=== PATIENT | female | born 1945 | race Caucasian/White ===

== ENCOUNTER 2023-05-18 10:31 | Emergency (ER) | payer MEDICARE, MEDICAID ==
[~2023-05-18] VITALS: Ht 154.9 cm; Wt 90.0 kg
[~2023-05-18 10:31] MED LIST: AMLO-314 PO; CEVI30CA7 PO; CYCL-1 PO; DET2T PO; DULO-31 PO; EST1T PO; FENO145T38 PO; GABA-532 PO; GLIP5TAB13 PO; HYDR-4353 PO; HYDR25TA4 PO; LEVO125T PO; LOSA-415 PO; METO100T14 PO; POLY15DR33 EACHEYE; VITA200C68 PO
[2023-05-18 10:37] VITALS: BP 136/75; PULSE 63; RESP 18; TEMP 98; O2SAT 96
== END 2023-05-18 11:47 | disposition home or self-care (01) ==
LOC: ER 10:32
DX: S51.812A Laceration without foreign body of left forearm, initial encounter (principal); X58.XXXA Exposure to other specified factors, initial encounter; Y93.89 Activity, other specified; Y92.89 Other specified places as the place of occurrence of the external cause; Y99.8 Other external cause status
CPT/HCPCS: 73080; 99284; A6258; A6449

== ENCOUNTER 2023-11-28 15:45 | Emergency (ER) | payer MEDICARE, MEDICAID ==
[~2023-11-28] VITALS: Ht 167.6 cm; Wt 80.1 kg
[~2023-11-28 15:45] MED LIST changes: -GLIP5TAB13 PO; +GLIP5TAB23 PO
[2023-11-28 16:03] VITALS: TEMP 98
[2023-11-28 17:53] LABS: EOSINOPHILS # (AUTO) 0.1 X10'3 (0-0.9); MONOCYTES # (AUTO) 0.6 X10'3 (0-0.9); NEUTROPHILS # (AUTO) 3.9 X10'3 (1.8-7.7); PLATELET COUNT 315 X10'3 (140-440)
[2023-11-28 17:55] LABS: BASOPHILS # (AUTO) 0.1 X10'3 (0-0.2); BASOPHILS % (AUTO) 0.8 % (0-1); EOSINOPHILS % (AUTO) 1.3 % (0-6); HEMATOCRIT 38.4 % (35.0-45.0); HEMOGLOBIN 12.9 g/dl (12.0-16.0); MEAN CORPUSCULAR HEMOGLOBIN 30.9 PG (27.0-31.0); MEAN CORPUSCULAR HGB CONC 33.7 g/dL (33.0-36.5); MEAN CORPUSCULAR VOLUME 91.9 FL (78-98); MEAN PLATELET VOLUME 9.1 FL (7.4-10.4); MONOCYTES % (AUTO) 9.1 % (2-12); NEUTROPHILS % (AUTO) 58.8 % (42-75); RED BLOOD COUNT 4.17 X10'6 (4.20-5.60); RED CELL DISTRIBUTION WIDTH 14.2 % (11.5-14.5); WHITE BLOOD COUNT 6.6 X10'3 (4.5-11.0)
[2023-11-28 18:20] LABS: ALBUMIN 3.2 G/DL (3.4-5.0); ANION GAP 14 (8-16); BLOOD UREA NITROGEN 16 MG/DL (7-18); BUN/CREATININE RATIO 12.9 (10.0-20.0); CALCIUM 9.2 MG/DL (8.5-10.1); CHLORIDE 101 MMOL/L (99-107); CREATININE 1.24 MG/DL (0.40-0.90); GLUCOSE 114 MG/DL (70-104); PRO BRAIN NATRIURETIC PEPTIDE 556 PG/ML (0-450); SODIUM 143 MMOL/L (135-145); TOTAL CARBON DIOXIDE 28.3 MMOL/L (24-32); eCRCL 34 ML/MIN; eGFR 42 ML/MIN
[2023-11-28 18:22] LABS: POTASSIUM 2.5 MMOL/L (3.5-5.1)
[2023-11-28] MEDS: potassium Cl 20 mEq SR tablet PO STA (19:11)
[2023-11-28] MEDS ORDERED: POTA-207 PO (19:50)
[2023-11-28 20:32] VITALS: BP 163/73; PULSE 64; RESP 16; O2SAT 95
== END 2023-11-28 20:33 | disposition home or self-care (01) ==
LOC: ER 15:45
DX: I87.1 Compression of vein (principal); E87.6 Hypokalemia; I11.0 Hypertensive heart disease with heart failure; I50.9 Heart failure, unspecified; E03.9 Hypothyroidism, unspecified; Z88.8 Allergy status to other drugs, medicaments and biological substances; Z91.018 Allergy to other foods
CPT/HCPCS: 36415; 71045; 80048; 83880; 84484; 85025; 93005; 93971; 99285

== ENCOUNTER 2024-09-20 15:55 | Inpatient (IN) | payer MEDICARE, MEDICAID ==
[~2024-09-20] VITALS: Ht 152.4 cm; Wt 70.5 kg
[2024-09-20 16:38] LABS: BASOPHILS # (AUTO) 0.1 X10'3 (0-0.2); BASOPHILS % (AUTO) 0.6 % (0-1); EOSINOPHILS # (AUTO) 0.1 X10'3 (0-0.9); EOSINOPHILS % (AUTO) 0.7 % (0-6); HEMATOCRIT 39.1 % (35.0-45.0); LYMPHOCYTES # (AUTO) 1.8 X10'3 (1.1-4.8); LYMPHOCYTES % (AUTO) 15.8 % (21-51); MEAN CORPUSCULAR HEMOGLOBIN 30.2 PG (27.0-31.0); MEAN CORPUSCULAR HGB CONC 33.2 g/dL (33.0-36.5); MEAN CORPUSCULAR VOLUME 90.8 FL (78-98); MEAN PLATELET VOLUME 9.6 FL (7.4-10.4); MONOCYTES # (AUTO) 0.9 X10'3 (0-0.9); MONOCYTES % (AUTO) 8.3 % (2-12); NEUTROPHILS # (AUTO) 8.5 X10'3 (1.8-7.7); NEUTROPHILS % (AUTO) 74.6 % (42-75); PLATELET COUNT 511 X10'3 (140-440); RED CELL DISTRIBUTION WIDTH 14.3 % (11.5-14.5); WHITE BLOOD COUNT 11.4 X10'3 (4.5-11.0)
[2024-09-20 16:55] LABS: ALBUMIN 2.9 G/DL (3.4-5.0); ANION GAP 11 (8-16); BLOOD UREA NITROGEN 34 MG/DL (7-18); BUN/CREATININE RATIO 14.2 (10.0-20.0); CALCIUM 8.9 MG/DL (8.5-10.1); CHLORIDE 96 MMOL/L (99-107); GLUCOSE 132 MG/DL (70-104); PRO BRAIN NATRIURETIC PEPTIDE 7822 PG/ML (0-450); SODIUM 140 MMOL/L (135-145); TOTAL CARBON DIOXIDE 33.2 MMOL/L (24-32); eCRCL 13 ML/MIN; eGFR 19 ML/MIN
[2024-09-20 17:02] LABS: POTASSIUM 2.9 MMOL/L (3.5-5.1)
[2024-09-20 17:38] LABS: ALANINE AMINOTRANSFERASE 35 U/L (12-78); ALBUMIN/GLOBULIN RATIO 0.6 (1.1-1.5); ALKALINE PHOSPHATASE 307 IU/L (46-116); ASPARTATE AMINO TRANSFERASE 45 U/L (10-37); BILIRUBIN,DIRECT 0.2 MG/DL (0-0.3); BILIRUBIN,TOTAL 0.6 MG/DL (0.1-1.0); LIPASE 118 U/L (16-77); MAGNESIUM 1.5 MG/DL (1.5-2.4); TOTAL PROTEIN 7.7 G/DL (6.4-8.2)
[2024-09-20 18:02] LABS: ETHANOL < 10 MG/DL (<10)
[2024-09-20] MEDS ORDERED: mag hydrox/Alum hydrox/simeth 30ml oral suspension PO PRN (18:05)
[2024-09-20] MEDS ORDERED: magnesium sulf-water 2g/50mL 50 ML IV PRN (18:05)
[2024-09-20] MEDS ORDERED: magnesium sulf-water 4G/100mL 100 ML IV PRN (18:05)
[2024-09-20] MEDS ORDERED: HYDROmorphone/PF 0.2 MG/ML SYRINGE IV PRN (18:05)
[2024-09-20] MEDS: normal saline 1000ml 1,000 ML IV SCH ×2 (18:05→19:25)
[2024-09-20] MEDS ORDERED: ondansetron/PF 4mg/2ml inj IV PRN (18:05)
[2024-09-20] MEDS ORDERED: potassium Cl 40MEQ/1/2NS 520ml 520 ML IV PRN (18:05)
[2024-09-20] MEDS ORDERED: morphine 2 MG/ML inj. syringe IV PRN (18:05)
[2024-09-20] MEDS ORDERED: potassium Cl 20 mEq SR tablet PO PRN (18:05)
[2024-09-20] MEDS ORDERED: magnesium hydroxide 30ml (MOM) UD suspension PO PRN (18:05)
[2024-09-20] MEDS ORDERED: acetaminophen 325mg tablet PO PRN ×2 (18:05)
[2024-09-20] MEDS: PERFLUTREN PROTEIN-A MICROSPHR (Optison) 0.22 MG/ML 3ML VIAL IV ONE (18:45)
[2024-09-20] MEDS ORDERED: DEXTROSE 15 GM of carb/4 tabs (each vial/BOTTLE has 4 tablets) PO PRN ×2 (18:45)
[2024-09-20] MEDS: potassium CL 10mEq/100ml bag 100 ML IV ONE (18:45)
[2024-09-20] MEDS ORDERED: dextrose 50%-water 50ml dispensing syringe IV PRN ×2 (18:45)
[2024-09-20] MEDS ORDERED: glucagon, human recombinant 1mg kit SUBCUT PRN (18:45)
[2024-09-20] MEDS: magnesium oxide 400mg tablet PO ONE (18:45)
[2024-09-20] MEDS: potassium Cl 20 mEq SR tablet PO ONE (18:46)
[2024-09-20 19:29] LABS: HEMOGLOBIN A1C 5.2 % (4.5-6.2)
[2024-09-20] MEDS ORDERED: piperacillin/tazo 4.5gm/100ml 100 ML IV SCH (19:30)
[2024-09-20] MEDS ORDERED: HYDROmorphone inj. 0.5 MG/0.5 ML DISP.SYRIN IV PRN (19:30)
[2024-09-20 19:37] LABS: CREATININE 2.25 MG/DL (0.40-0.90); SODIUM 139 MMOL/L (135-145); eCRCL 14 ML/MIN; eGFR 21 ML/MIN
[2024-09-20] MEDS: normal saline 500ml IV soln 500 ML IV ONE (19:52)
[2024-09-20] MEDS: furosemide 20 MG/2 ML vial IV ONE (19:57)
[2024-09-20] MEDS: docusate sod 100mg capsule PO SCH (20:00)
[2024-09-20] MEDS: K and/or MAG REPLACEMENT MC SCH (20:00)
[2024-09-20 20:09] LABS: OSMOLALITY 307 MOSM/K (280-300)
[2024-09-20 20:58] LABS: THYROID STIMULATING HORMONE 0.21 ulU/ml (0.34-4.50)
[2024-09-20] MEDS: INSULIN LISPRO 100 UNIT/ML INSULN.PEN MULTI-DOSE SQ SCH (21:00)
[2024-09-20] MEDS: insulin glargine (Lantus) pen - multi-dose SQ SCH (21:23)
[2024-09-20] MEDS ORDERED: Melatonin 3mg tablet PO SCH (23:00)
[2024-09-20] MEDS: Melatonin 3mg tablet PO ONE (23:13)
[2024-09-20 23:56] LABS: BILIRUBIN,URINE NEGATIVE (Neg); CLARITY,URINE CLOUDY (Clear); COLOR,URINE YELLOW (Yellow); GLUCOSE, URINE NEGATIVE (Neg); KETONES,URINE NEGATIVE (Neg); LEUKOCYTE ESTERASE ,URINE LARGE (Neg); NITRITES, URINE NEGATIVE (Neg); OCCULT BLOOD,URINE MODERATE (Neg); PROTEIN,URINE NEGATIVE (Neg); UROBILINOGEN,URINE 0.2 E.U/dL (0.2-1.0)
[2024-09-21] VITALS (12 sets, daily range): BP systolic 107–164; BP diastolic 53–82; PULSE 68–154; RESP 16–18; TEMP 97.6–99.5; O2SAT 90–98
[2024-09-21 00:05] LABS: UA COLLECTION TYPE VOIDED
[2024-09-21 00:06] LABS: BACTERIA,URINE 4+ /HPF (Neg); MUCUS STRANDS FEW /LPF (Neg); SQUAMOUS EPITHELIAL CELL,UR MODERATE /LPF (FEW); WBC,URINE TNTC /HPF (0-4)
[2024-09-21 00:40] LABS: SODIUM,URINE RANDOM 108 MEQ/L; URINE AMPHETAMINE SCREEN NEGATIVE (Neg); URINE BARBITUATE SCREEN NEGATIVE (Neg); URINE BENZODIAZEPINES SCREEN NEGATIVE (Neg); URINE CANNABINOID SCREEN NEGATIVE (Neg); URINE COCAINE SCREEN NEGATIVE (Neg); URINE METHADONE SCREEN NEGATIVE (Neg); URINE OPIATE SCREEN NEGATIVE (Neg); URINE PHENCYCLIDINE SCREEN NEGATIVE (Neg)
[2024-09-21 01:10] LABS: OSMOLALITY UA 297 MOSM/K (50-1400)
[2024-09-21] MEDS: metoprolol tartrate 1mg/ml inj IV SCH (02:23)
[2024-09-21] MEDS ORDERED: POTA-208 PO (03:11)
[2024-09-21] MEDS ORDERED: LOP12.5T PO (03:11)
[2024-09-21] MEDS ORDERED: PILO7.5T4 PO (03:11)
[2024-09-21] MEDS ORDERED: FURO20TA4 PO (03:11)
[2024-09-21] MEDS ORDERED: polyvinyl alcohol eye drops 15ML BOTTLE EACHEYE PRN (07:20)
[2024-09-21] MEDS ORDERED: cyclobenzaprine 10mg tablet PO PRN (07:20)
[2024-09-21 07:41] LABS: BASOPHILS # (AUTO) 0.1 X10'3 (0-0.2); BASOPHILS % (AUTO) 0.5 % (0-1); EOSINOPHILS # (AUTO) 0.1 X10'3 (0-0.9); HEMATOCRIT 30.6 % (35.0-45.0); HEMOGLOBIN 10.1 g/dl (12.0-16.0); LYMPHOCYTES # (AUTO) 1.8 X10'3 (1.1-4.8); LYMPHOCYTES % (AUTO) 16.5 % (21-51); MEAN CORPUSCULAR HGB CONC 33.1 g/dL (33.0-36.5); MEAN CORPUSCULAR VOLUME 90.9 FL (78-98); MEAN PLATELET VOLUME 9.6 FL (7.4-10.4); MONOCYTES # (AUTO) 0.9 X10'3 (0-0.9); MONOCYTES % (AUTO) 7.9 % (2-12); NEUTROPHILS % (AUTO) 74.1 % (42-75); PLATELET COUNT 346 X10'3 (140-440); RED BLOOD COUNT 3.37 X10'6 (4.20-5.60); RED CELL DISTRIBUTION WIDTH 13.9 % (11.5-14.5); WHITE BLOOD COUNT 10.7 X10'3 (4.5-11.0)
[2024-09-21 07:59] LABS: ALANINE AMINOTRANSFERASE 31 U/L (12-78); ALBUMIN 2.1 G/DL (3.4-5.0); ALBUMIN/GLOBULIN RATIO 0.6 (1.1-1.5); ALKALINE PHOSPHATASE 248 IU/L (46-116); ANION GAP 9 (8-16); ASPARTATE AMINO TRANSFERASE 35 U/L (10-37); BILIRUBIN,TOTAL 0.6 MG/DL (0.1-1.0); BLOOD UREA NITROGEN 34 MG/DL (7-18); BUN/CREATININE RATIO 16.1 (10.0-20.0); CALCIUM 7.8 MG/DL (8.5-10.1); CHLORIDE 101 MMOL/L (99-107); CHOL/HDL RATIO 2.6 (0.00-4.99); CHOLESTEROL 106 MG/DL (0-200); CREATININE 2.11 MG/DL (0.40-0.90); GLUCOSE 100 MG/DL (70-104); HDL CHOLESTEROL 41 MG/DL (35-60); LDL CHOLESTEROL 50 MG/DL (50-100); LIPASE 97 U/L (16-77); MAGNESIUM 1.5 MG/DL (1.5-2.4); SODIUM 140 MMOL/L (135-145); TOTAL CARBON DIOXIDE 29.6 MMOL/L (24-32); TOTAL PROTEIN 5.8 G/DL (6.4-8.2); TRIGLYCERIDES 95 MG/DL (20-135); eCRCL 15 ML/MIN; eGFR 23 ML/MIN
[2024-09-21] MEDS ORDERED: furosemide 40mg/4ml inj IV SCH (08:00)
[2024-09-21] MEDS: metroNIDAZOLE-Flagyl 500mg/NS 100 ML IV SCH (08:04)
[2024-09-21] MEDS: normal saline 1000ml 1,000 ML IV ONE (08:04)
[2024-09-21] MEDS: gabapentin 300mg capsule PO SCH (08:06)
[2024-09-21] MEDS: duloxetine 30mg CAPSULE.DR PO SCH (08:06)
[2024-09-21] MEDS: amLODIPine 5mg tablet PO SCH (08:06)
[2024-09-21] MEDS: levoTHYROXINE 125mcg tablet PO SCH (08:07)
[2024-09-21] MEDS: fenofibrate 145mg tablet PO SCH (08:07)
[2024-09-21] MEDS: losartan 25mg tablet PO SCH (08:07)
[2024-09-21] MEDS: metoprolol tartrate 12.5mg (1/2 tablet) PO SCH (08:07)
[2024-09-21 08:12] LABS: POTASSIUM 2.6 MMOL/L (3.5-5.1)
[2024-09-21] MEDS: potassium Cl 20 mEq SR tablet PO PRN (08:14)
[2024-09-21] MEDS: CefTRIAXone/D5W-Rocephin 1gm 50 ML IV SCH (09:16)
[2024-09-21] MEDS: heparin, porcine 5000 units/ml vial SQ SCH (09:16)
[2024-09-21] MEDS ORDERED: gabapentin 300mg capsule PO SCH (14:45)
[2024-09-21] MEDS: normal saline 1000ml 1,000 ML IV SCH (17:07)
[2024-09-22] VITALS (25 sets, daily range): BP systolic 100–153; BP diastolic 62–97; PULSE 75–134; RESP 16–31; TEMP 97–98.1; O2SAT 91–94
[2024-09-22] MEDS: metoprolol tartrate 1mg/ml inj IV ONE ×2 (05:50→06:02)
[2024-09-22 07:14] LABS: BASOPHILS # (AUTO) 0.1 X10'3 (0-0.2); BASOPHILS % (AUTO) 0.5 % (0-1); EOSINOPHILS % (AUTO) 0.2 % (0-6); HEMATOCRIT 36.1 % (35.0-45.0); HEMOGLOBIN 11.8 g/dl (12.0-16.0); LYMPHOCYTES # (AUTO) 1.1 X10'3 (1.1-4.8); LYMPHOCYTES % (AUTO) 6.6 % (21-51); MEAN CORPUSCULAR HGB CONC 32.7 g/dL (33.0-36.5); MEAN CORPUSCULAR VOLUME 91.7 FL (78-98); MONOCYTES # (AUTO) 1.1 X10'3 (0-0.9); MONOCYTES % (AUTO) 6.5 % (2-12); NEUTROPHILS # (AUTO) 14.8 X10'3 (1.8-7.7); NEUTROPHILS % (AUTO) 86.2 % (42-75); PLATELET COUNT 445 X10'3 (140-440); RED BLOOD COUNT 3.94 X10'6 (4.20-5.60); RED CELL DISTRIBUTION WIDTH 14.8 % (11.5-14.5); WHITE BLOOD COUNT 17.2 X10'3 (4.5-11.0)
[2024-09-22 07:39] LABS: ALANINE AMINOTRANSFERASE 31 U/L (12-78); ALBUMIN 2.2 G/DL (3.4-5.0); ALBUMIN/GLOBULIN RATIO 0.5 (1.1-1.5); ALKALINE PHOSPHATASE 314 IU/L (46-116); ANION GAP 9 (8-16); ASPARTATE AMINO TRANSFERASE 64 U/L (10-37); BILIRUBIN,TOTAL 0.8 MG/DL (0.1-1.0); BLOOD UREA NITROGEN 28 MG/DL (7-18); CALCIUM 8.4 MG/DL (8.5-10.1); CHLORIDE 104 MMOL/L (99-107); CREATININE 1.87 MG/DL (0.40-0.90); GLUCOSE 137 MG/DL (70-104); MAGNESIUM 1.4 MG/DL (1.5-2.4); POTASSIUM 4.4 MMOL/L (3.5-5.1); SODIUM 137 MMOL/L (135-145); TOTAL CARBON DIOXIDE 23.8 MMOL/L (24-32); TOTAL PROTEIN 6.4 G/DL (6.4-8.2); eCRCL 17 ML/MIN; eGFR 26 ML/MIN
[2024-09-22] MEDS: gabapentin 300mg capsule PO SCH (07:49)
[2024-09-22] MEDS: amiodarone 150mg/dext, iso-os 100 ML IV ONE (08:53)
[2024-09-22 08:55] LABS: D-DIMER 2.33 MG/L FEU (0-0.50)
[2024-09-22] MEDS: amiodarone/D5 360MG/200ML BAG 200 ML IV SCH (09:02)
[2024-09-22] MEDS ORDERED: iohexol 300 MG/1 ML 50ml polymer ONE (09:45)
[2024-09-22] MEDS ORDERED: ondansetron/PF 4mg/2ml inj IV PRN (10:50)
[2024-09-22] MEDS ORDERED: HYDROmorphone/PF 0.2 MG/ML SYRINGE IV PRN ×2 (10:50)
[2024-09-22] MEDS ORDERED: morphine 4 MG/ML inj SYRINge IV PRN (10:50)
[2024-09-22] MEDS ORDERED: morphine 2 MG/ML inj. syringe IV PRN (10:50)
[2024-09-22] MEDS ORDERED: ringers solution, lacted 1,000 ML IV SCH (10:50)
[2024-09-22] MEDS ORDERED: propofol inj 20 ML IV ONE (10:56)
[2024-09-22] MEDS ORDERED: fentaNYL/PF 50MCG/1 ML 2ML syringe ONE (10:57)
[2024-09-22] MEDS: iohexol 300 MG/1 ML 10ml vial IJ ONE (12:22)
[2024-09-22] MEDS: magnesium Cl slow-release 64mg tablet PO PRN (15:00)
[2024-09-22] MEDS: metoprolol tartrate 25mg tablet PO SCH (21:56)
[2024-09-23] VITALS (17 sets, daily range): BP systolic 98–165; BP diastolic 79–123; PULSE 105–128; RESP 16–27; TEMP 97.8–98.9; O2SAT 91–96
[2024-09-23 07:05] LABS: BASOPHILS # (AUTO) 0.1 X10'3 (0-0.2); EOSINOPHILS # (AUTO) 0.2 X10'3 (0-0.9); LYMPHOCYTES # (AUTO) 1.6 X10'3 (1.1-4.8); LYMPHOCYTES % (AUTO) 9.3 % (21-51); MEAN PLATELET VOLUME 10.3 FL (7.4-10.4); MONOCYTES # (AUTO) 1.4 X10'3 (0-0.9); RED CELL DISTRIBUTION WIDTH 14.9 % (11.5-14.5)
[2024-09-23 07:06] LABS: BASOPHILS % (AUTO) 0.3 % (0-1); EOSINOPHILS % (AUTO) 1.2 % (0-6); HEMATOCRIT 36.4 % (35.0-45.0); HEMOGLOBIN 11.8 g/dl (12.0-16.0); MEAN CORPUSCULAR HEMOGLOBIN 29.6 PG (27.0-31.0); MEAN CORPUSCULAR HGB CONC 32.3 g/dL (33.0-36.5); MEAN CORPUSCULAR VOLUME 91.6 FL (78-98); MONOCYTES % (AUTO) 7.7 % (2-12); NEUTROPHILS # (AUTO) 14.4 X10'3 (1.8-7.7); NEUTROPHILS % (AUTO) 81.5 % (42-75); PLATELET COUNT 508 X10'3 (140-440); RED BLOOD COUNT 3.98 X10'6 (4.20-5.60); WHITE BLOOD COUNT 17.7 X10'3 (4.5-11.0)
[2024-09-23] MEDS ORDERED: apixaban 5mg tablet PO SCH (08:00)
[2024-09-23] MEDS: apixaban 2.5mg tablet PO SCH (08:06)
[2024-09-23 09:08] LABS: ALANINE AMINOTRANSFERASE 29 U/L (12-78); ALBUMIN/GLOBULIN RATIO 0.5 (1.1-1.5); ALKALINE PHOSPHATASE 279 IU/L (46-116); ANION GAP 11 (8-16); ASPARTATE AMINO TRANSFERASE 51 U/L (10-37); BILIRUBIN,TOTAL 0.4 MG/DL (0.1-1.0); BLOOD UREA NITROGEN 23 MG/DL (7-18); BUN/CREATININE RATIO 14.7 (10.0-20.0); CALCIUM 8.2 MG/DL (8.5-10.1); CHLORIDE 105 MMOL/L (99-107); CREATININE 1.56 MG/DL (0.40-0.90); GLUCOSE 126 MG/DL (70-104); MAGNESIUM 1.6 MG/DL (1.5-2.4); SODIUM 142 MMOL/L (135-145); TOTAL CARBON DIOXIDE 26.4 MMOL/L (24-32); TOTAL PROTEIN 5.9 G/DL (6.4-8.2); eCRCL 21 ML/MIN; eGFR 32 ML/MIN
[2024-09-23] MEDS: enoxaparin 80mg/0.8ml syringe SUBCUT SCH (17:48)
[2024-09-24] VITALS (15 sets, daily range): BP systolic 90–161; BP diastolic 68–104; PULSE 92–139; RESP 16–22; TEMP 97.2–98; O2SAT 87–96
[2024-09-24] MEDS: cefepime 1GM in D5W 50mL 50 ML IV SCH (01:20)
[2024-09-24 07:29] LABS: BASOPHILS # (AUTO) 0.1 X10'3 (0-0.2); BASOPHILS % (AUTO) 0.7 % (0-1); EOSINOPHILS # (AUTO) 0.2 X10'3 (0-0.9); EOSINOPHILS % (AUTO) 1.7 % (0-6); HEMATOCRIT 35.5 % (35.0-45.0); HEMOGLOBIN 11.6 g/dl (12.0-16.0); LYMPHOCYTES # (AUTO) 1.5 X10'3 (1.1-4.8); LYMPHOCYTES % (AUTO) 13.9 % (21-51); MEAN CORPUSCULAR HEMOGLOBIN 29.7 PG (27.0-31.0); MEAN CORPUSCULAR HGB CONC 32.6 g/dL (33.0-36.5); MEAN CORPUSCULAR VOLUME 91.2 FL (78-98); MEAN PLATELET VOLUME 10.2 FL (7.4-10.4); MONOCYTES # (AUTO) 0.8 X10'3 (0-0.9); MONOCYTES % (AUTO) 7.5 % (2-12); NEUTROPHILS # (AUTO) 8.5 X10'3 (1.8-7.7); NEUTROPHILS % (AUTO) 76.2 % (42-75); PLATELET COUNT 448 X10'3 (140-440); RED CELL DISTRIBUTION WIDTH 15.1 % (11.5-14.5); WHITE BLOOD COUNT 11.1 X10'3 (4.5-11.0)
[2024-09-24 08:02] LABS: ALANINE AMINOTRANSFERASE 22 U/L (12-78); ALBUMIN/GLOBULIN RATIO 0.5 (1.1-1.5); ALKALINE PHOSPHATASE 274 IU/L (46-116); ANION GAP 11 (8-16); ASPARTATE AMINO TRANSFERASE 33 U/L (10-37); BILIRUBIN,TOTAL 0.3 MG/DL (0.1-1.0); BLOOD UREA NITROGEN 20 MG/DL (7-18); BUN/CREATININE RATIO 13.3 (10.0-20.0); CALCIUM 8.3 MG/DL (8.5-10.1); CHLORIDE 105 MMOL/L (99-107); GLUCOSE 109 MG/DL (70-104); MAGNESIUM 1.4 MG/DL (1.5-2.4); POTASSIUM 3.3 MMOL/L (3.5-5.1); SODIUM 139 MMOL/L (135-145); TOTAL CARBON DIOXIDE 23.3 MMOL/L (24-32); TOTAL PROTEIN 6.4 G/DL (6.4-8.2); eCRCL 21 ML/MIN; eGFR 33 ML/MIN
[2024-09-24] MEDS: metoprolol tartrate 1mg/ml inj IV SCH (08:15)
[2024-09-24 09:38] LABS: BILIRUBIN,DIRECT 0.1 MG/DL (0-0.3); FREE T4 (FREE THYROXINE) 1.38 NG/DL (0.73-1.40); THYROID STIMULATING HORMONE 0.46 ulU/ml (0.34-4.50)
[2024-09-24] MEDS: metoprolol succinate 25mg (24-HOUR) SR. Tablet PO SCH (10:53)
[2024-09-24] MEDS: amiodarone 200mg tablet PO SCH (10:53)
[2024-09-24] MEDS ORDERED: levoFLOXACIN 500mg tablet PO SCH (11:00)
[2024-09-24] MEDS ORDERED: magnesium sulf-water 2g/50mL 50 ML IV PRN (14:45)
[2024-09-24] MEDS ORDERED: potassium Cl 40MEQ/1/2NS 520ml 520 ML IV PRN (14:45)
[2024-09-24] MEDS ORDERED: magnesium sulf-water 4G/100mL 100 ML IV PRN (14:45)
[2024-09-24] MEDS ORDERED: potassium Cl 20 mEq SR tablet PO PRN (14:45)
[2024-09-24] MEDS: digoxin 250mcg/ml 2ml ampule IV STA (14:59)
[2024-09-24] MEDS: magnesium Cl slow-release 64mg tablet PO PRN (16:00)
[2024-09-24] MEDS: digoxin 250mcg/ml 2ml ampule IV ONE ×2 (18:14→20:10)
[2024-09-24] MEDS: potassium Cl 20 mEq SR tablet PO PRN (18:37)
[2024-09-24] MEDS: digoxin 250mcg/ml 2ml ampule ONE (23:38)
[2024-09-25] VITALS (7 sets, daily range): BP systolic 142–160; BP diastolic 69–98; PULSE 72–97; RESP 12–23; TEMP 97.3–98.6; O2SAT 95–96
[2024-09-25 06:54] LABS: BASOPHILS % (AUTO) 0.6 % (0-1); EOSINOPHILS # (AUTO) 0.2 X10'3 (0-0.9); EOSINOPHILS % (AUTO) 2.2 % (0-6); HEMATOCRIT 35.6 % (35.0-45.0); HEMOGLOBIN 11.5 g/dl (12.0-16.0); LYMPHOCYTES # (AUTO) 1.1 X10'3 (1.1-4.8); LYMPHOCYTES % (AUTO) 14.8 % (21-51); MEAN CORPUSCULAR HEMOGLOBIN 30.6 PG (27.0-31.0); MEAN CORPUSCULAR HGB CONC 32.3 g/dL (33.0-36.5); MEAN CORPUSCULAR VOLUME 94.5 FL (78-98); MEAN PLATELET VOLUME 9.8 FL (7.4-10.4); MONOCYTES # (AUTO) 0.5 X10'3 (0-0.9); MONOCYTES % (AUTO) 6.8 % (2-12); NEUTROPHILS # (AUTO) 5.6 X10'3 (1.8-7.7); NEUTROPHILS % (AUTO) 75.6 % (42-75); PLATELET COUNT 296 X10'3 (140-440); RED BLOOD COUNT 3.77 X10'6 (4.20-5.60); RED CELL DISTRIBUTION WIDTH 15.8 % (11.5-14.5); WHITE BLOOD COUNT 7.4 X10'3 (4.5-11.0)
[2024-09-25 08:35] LABS: ALANINE AMINOTRANSFERASE 18 U/L (12-78); ALBUMIN/GLOBULIN RATIO 0.5 (1.1-1.5); ALKALINE PHOSPHATASE 268 IU/L (46-116); ANION GAP 10 (8-16); ASPARTATE AMINO TRANSFERASE 29 U/L (10-37); BILIRUBIN,TOTAL 0.5 MG/DL (0.1-1.0); BLOOD UREA NITROGEN 17 MG/DL (7-18); BUN/CREATININE RATIO 12.1 (10.0-20.0); CALCIUM 8.3 MG/DL (8.5-10.1); CHLORIDE 108 MMOL/L (99-107); GLUCOSE 88 MG/DL (70-104); POTASSIUM 3.5 MMOL/L (3.5-5.1); SODIUM 141 MMOL/L (135-145); TOTAL CARBON DIOXIDE 22.6 MMOL/L (24-32); TOTAL PROTEIN 5.9 G/DL (6.4-8.2); eCRCL 23 ML/MIN; eGFR 36 ML/MIN
[2024-09-25] MEDS: cefepime 1GM in D5W 50mL 50 ML IV SCH (09:06)
[2024-09-25 09:26] LABS: DIGOXIN 1.8 NG/ML (0.9-1.9)
[2024-09-25] MEDS: digoxin 125mcg (0.125mg) tablet PO SCH (10:08)
[2024-09-25] MEDS ORDERED: glucagon, human recombinant 1mg kit SUBCUT PRN (18:00)
[2024-09-25] MEDS ORDERED: dextrose 50%-water 50ml dispensing syringe IV PRN ×2 (18:00)
[2024-09-25] MEDS ORDERED: DEXTROSE 15 GM of carb/4 tabs (each vial/BOTTLE has 4 tablets) PO PRN ×2 (18:00)
[2024-09-25] MEDS: losartan 50mg tablet PO SCH (20:58)
[2024-09-25] MEDS: INSULIN LISPRO 100 UNIT/ML INSULN.PEN MULTI-DOSE SQ SCH (21:00)
[2024-09-26 02:00] VITALS: BP 152/79; PULSE 78; RESP 15; TEMP 97.1; O2SAT 95
[2024-09-26 06:00] VITALS: BP 168/92; PULSE 78; RESP 17; TEMP 97.7; O2SAT 95
[2024-09-26 07:26] LABS: MAGNESIUM 1.3 MG/DL (1.5-2.4)
[2024-09-26] MEDS: enoxaparin 80mg/0.8ml syringe SUBCUT SCH (07:43)
[2024-09-26 08:01] LABS: ALANINE AMINOTRANSFERASE 18 U/L (12-78); ALBUMIN/GLOBULIN RATIO 0.5 (1.1-1.5); ALKALINE PHOSPHATASE 322 IU/L (46-116); ANION GAP 10 (8-16); ASPARTATE AMINO TRANSFERASE 36 U/L (10-37); BILIRUBIN,TOTAL 0.5 MG/DL (0.1-1.0); BLOOD UREA NITROGEN 15 MG/DL (7-18); BUN/CREATININE RATIO 12.9 (10.0-20.0); CALCIUM 8.1 MG/DL (8.5-10.1); CHLORIDE 107 MMOL/L (99-107); CREATININE 1.16 MG/DL (0.40-0.90); GLUCOSE 105 MG/DL (70-104); SODIUM 140 MMOL/L (135-145); TOTAL CARBON DIOXIDE 22.9 MMOL/L (24-32); TOTAL PROTEIN 6.1 G/DL (6.4-8.2); eCRCL 28 ML/MIN; eGFR 45 ML/MIN
[2024-09-26 08:02] LABS: BASOPHILS # (AUTO) 0.1 X10'3 (0-0.2); BASOPHILS % (AUTO) 0.8 % (0-1); EOSINOPHILS # (AUTO) 0.2 X10'3 (0-0.9); EOSINOPHILS % (AUTO) 2.6 % (0-6); HEMATOCRIT 33.1 % (35.0-45.0); LYMPHOCYTES # (AUTO) 1.4 X10'3 (1.1-4.8); LYMPHOCYTES % (AUTO) 16.8 % (21-51); MEAN CORPUSCULAR HEMOGLOBIN 30.4 PG (27.0-31.0); MEAN CORPUSCULAR HGB CONC 33.4 g/dL (33.0-36.5); MEAN CORPUSCULAR VOLUME 91.2 FL (78-98); MEAN PLATELET VOLUME 9.3 FL (7.4-10.4); MONOCYTES # (AUTO) 0.8 X10'3 (0-0.9); MONOCYTES % (AUTO) 9.4 % (2-12); NEUTROPHILS # (AUTO) 5.7 X10'3 (1.8-7.7); NEUTROPHILS % (AUTO) 70.4 % (42-75); PLATELET COUNT 531 X10'3 (140-440); RED BLOOD COUNT 3.63 X10'6 (4.20-5.60); RED CELL DISTRIBUTION WIDTH 14.7 % (11.5-14.5); WHITE BLOOD COUNT 8.1 X10'3 (4.5-11.0)
[2024-09-26 08:10] LABS: POTASSIUM 3.3 MMOL/L (3.5-5.1)
[2024-09-26 11:00] VITALS: BP 155/72; PULSE 74; RESP 12; TEMP 97.9; O2SAT 93
[2024-09-26] MEDS ORDERED: ipratropium/albuterol 3ml nebule NEB PRN (13:15)
[2024-09-26 15:00] VITALS: BP 139/80; PULSE 83; RESP 22; TEMP 98; O2SAT 93
[2024-09-26] MEDS ORDERED: CefTRIAXone/D5W-Rocephin 1gm 50 ML IV SCH (15:20)
[2024-09-27] MEDS ORDERED: CefTRIAXone/D5W-Rocephin 1gm 50 ML IV SCH (08:00)
== END 2024-09-26 17:50 | disposition left against medical advice (07) | DRG 853 ==
LOC: ER 15:56 → ED HOLD 17:32 → PCU 3S 09-21 00:35
PROVIDERS: ADMIT Family Medicine; ATTEND Family Medicine
PROC: 0T778DZ Dilation of Left Ureter with Intraluminal Device, Via Natural or Artificial Opening Endoscopic (ICD-10-PCS; 2024-09-22)
PROC: BT1F1ZZ Fluoroscopy of Left Kidney, Ureter and Bladder using Low Osmolar Contrast (ICD-10-PCS; principal; 2024-09-22 10:54)
PROC: 5A0935A Assistance with Respiratory Ventilation, Less than 24 Consecutive Hours, High Flow/Velocity Cannula (ICD-10-PCS; 2024-09-23)
PROC: CB121ZZ Planar Nuclear Medicine Imaging of Lungs and Bronchi using Technetium 99m (Tc-99m) (ICD-10-PCS; 2024-09-24)
PROC: 5A0935A Assistance with Respiratory Ventilation, Less than 24 Consecutive Hours, High Flow/Velocity Cannula (ICD-10-PCS; 2024-09-24)
DX: A41.9 Sepsis, unspecified organism (principal); G93.41 Metabolic encephalopathy; I50.33 Acute on chronic diastolic (congestive) heart failure; N17.9 Acute kidney failure, unspecified; I13.0 Hypertensive heart and chronic kidney disease with heart failure and stage 1 through stage 4 chronic kidney disease, or unspecified chronic kidney disease; N13.6 Pyonephrosis; C66.2 Malignant neoplasm of left ureter; E87.6 Hypokalemia; Z53.21 Procedure and treatment not carried out due to patient leaving prior to being seen by health care provider; N18.9 Chronic kidney disease, unspecified; E86.0 Dehydration; E03.9 Hypothyroidism, unspecified; F03.90 Unspecified dementia, unspecified severity, without behavioral disturbance, psychotic disturbance, mood disturbance, and anxiety; M79.7 Fibromyalgia; Z88.8 Allergy status to other drugs, medicaments and biological substances; Z88.0 Allergy status to penicillin; Z79.899 Other long term (current) drug therapy; Z79.84 Long term (current) use of oral hypoglycemic drugs
CPT/HCPCS: 36415; 71045; 71046; 74176; 74420; 76000; 76700; 78582; 80048; 80053; 80061; 80076; 80162; 80305; 80320; 81001; 81003; 82248; 82565; 82570; 82948; 83036; 83605; 83690; 83735; 83880; 83930; 83935; 84132; 84145; 84156; 84295; 84300; 84439; 84443; 84484; 85025; 85379; 87040; 87045; 87046; 87077; 87081; 87088; 87186; 89055; 93005; 93306; 97116; 97161; 97530; 99285; A4357; A4615; A4618; A4620; A6250; A6258; A9540; C2617; G0378; J0282; J0692; J0696; J1160; J1644; J1650; J1815; J1940; J2704; J3010; J3480; J3490; J7030; Q9967